=== PATIENT | female | born 1960 | race Caucasian/White ===

== ENCOUNTER 2024-02-26 09:32 | Emergency (ER) | payer OTHER ==
[~2024-02-26] VITALS: Ht 160 cm; Wt 78.9 kg
[2024-02-26] MEDS ORDERED: LEVO-T50 MCG (10:23)
[2024-02-26] MEDS ORDERED: INDERAL LA160 MG (10:23)
[2024-02-26] MEDS ORDERED: SIMVASTATIN5 MG (10:23)
[2024-02-26 10:24] VITALS: BP 127/74; O2SAT 97
[2024-02-26] MEDS ORDERED: FENOFIBRATE50 MG (10:24)
[2024-02-26 11:54] LABS: HEMATOCRIT 37.7 % (36.0-45.00); HEMOGLOBIN 13.1 g/dL (12.0-15.00); MEAN CORPUSCULAR HEMOGLOBIN 30.6 pg (27.00-32.0); MEAN CORPUSCULAR HGB CONC 34.8 g/dl (32.0-36.0); PLATELET COUNT 244 K/uL (150-450); RED BLOOD COUNT 4.29 M/uL (4.00-6.00); RED CELL DISTRIBUTION WIDTH 12.8 % (11.5-14.5)
[2024-02-26 12:09] LABS: CALCIUM 9.7 mg/dL (8.5-10.1); CREATININE SERUM 0.77 mg/dL (0.55-1.02); GFR 75.71; POTASSIUM 4.37 mEq/L (3.5-5.1)
[2024-02-26 13:06] LABS: URINE APPEARANCE Clear; URINE BILIRRUBIN Negative (NEGATIVE); URINE BLOOD Negative; URINE COLOR Yellow; URINE GLUCOSE Negative (NEGATIVE); URINE KETONE Negative (NEGATIVE); URINE LEUKOCYTE Negative; URINE NITRATE Negative; URINE PROTEIN Negative (NEGATIVE); URINE UROBILINOGEN 0.2 E.U./dl
[2024-02-26 13:08] LABS: URINE BACTERIA 337.5 uL (0.0-1933); URINE RBC 25.1 uL (0.0-20.8); URINE WBC 15.1 uL (0.0-23.2)
== END 2024-02-26 13:26 | disposition home or self-care (01) ==
LOC: ER 09:32
PROVIDERS: General Practice
DX: M54.9 Dorsalgia, unspecified (principal); R10.9 Unspecified abdominal pain; Z91.041 Radiographic dye allergy status